=== PATIENT | male | born 1945 | race African-American/Black ===

== ENCOUNTER 2017-08-25 12:25 | Inpatient (IN) | payer OTHER, BC ==
[~2017-08-25] VITALS: Ht 180.3 cm; Wt 77.3 kg
--- NOTE | ~2017-08-25 | PLAN ---
[facility] [place] [address] REHAB UNIT PLAN OF CARE Name: NOVA REYNA Room #: 514-P ADM IN M.R.#: [id number] Admission: 08/26/17 Attend Phys: Nikko Grijalva MD Discharge: Date of : 45 Report #: [id number] THIS REPORT FOR: //name// CC: Nikko Kim DATE OF SERVICE: 08/28/2017 INTERNAL HISTORY: The patient is seen back today in followup. No specific complaints, temperature 98.2, pulse 60, respirations 16, blood pressure 140/79. He is alert. He does have some cogwheeling of his upper extremities, elbows and wrists. Wound care has been involved with his abdominal wound, which had dehiscence of the abdominal surgical wound and they did perform a sharp excisional debridement yesterday. The patient functionally is transferring with min assist with gait, mod assist 250 feet without a device. In occupational therapy, he is min assist for upper body dressing and max assist for lower body dressing. In speech therapy, he does have wszw-[id number] dysphagia with recommendations for mechanical soft, honey-thickened liquid diet. ASSESSMENT: 1. Parkinson's disease. 2. Small-bowel obstruction, status post exploratory laparotomy with ileostomy placement. 3. Midline surgical abdominal wound with dehiscence, now status post sharp debridement and packing. 4. Chronic orthostatic hypotension. 5. History of acute renal failure. 6. History of elevated lipids. PLAN: The overall plan of care is based on the preadmission screen, post-admission physician evaluation and information garnered from therapy assessments. 1. Estimated length of stay is probably at least 2 weeks pending progress. 2. Medical prognosis is reasonably good. 3. Anticipated interventions includes the interdisciplinary acute inpatient rehabilitation program with the multiple leadership development consultant physicians that are involved. 4. Anticipated functional outcomes would be for the patient to become modified independent with transfers, mobility and ADLs, improvement in swallowing and further progress as far as his wound as well as training with the patient and , so that he can return back to the home setting. 5. Discharge destination would be back home with his . 6. Expected therapy by discipline includes PT, OT and speech 1 hour per day each, five days a week throughout the duration of the acute inpatient [address] [address] REHAB UNIT PLAN OF CARE Name: NOVA REYNA Room #: 514-P [facility] IN [facility]#: [id number] Admission: 08/26/17 Attend Phys: Nikko Grijalva MD Discharge: Date of : 45 Report #: [id number] rehabilitation stay. In addition to the progress note above is the dysphagia for which he is currently on the thickened liquids. <ELECTRONICALLY SIGNED> By: Nikko Grijalva MD 09/01/17 1116 1022 0015 Nikko Grijalva MD /PMT
--- NOTE | ~2017-08-25 | HC ---
[facility] [place] [address] CONSULTATION Name: NOVA REYNA Room #: 514-P [facility] IN .R.#: [id number] Admission: 08/26/17 Attend Phys: Nikko Grijalva MD Discharge: Date of : 45 Report #: [id number] THIS REPORT FOR: //name// CC: Nikko Kim DATE OF SERVICE: 08/27/2017 REASON FOR CONSULTATION: Nonhealing midline surgical incision wound with wound dehiscence. HISTORY OF PRESENT ILLNESS: The patient is a 72-year-old patient of [facility] [place]. He was a surgical patient at [facility] where he underwent exploratory laparotomy recently for a small-bowel obstruction. A diverting ileostomy was required. Details of that surgery including the segment resected and where there are internal anastomosis is not immediately available. The patient was transferred to the rehabilitation unit due to his Parkinson's disease and poor wound care after his midline abdominal incision wound was noted to have suffered dehiscence. PAST MEDICAL HISTORY: Parkinson's disease, history of chronic orthostatic hypotension, history of acute renal failure, hyperlipidemia. MEDICATIONS: See the MAR. ALLERGIES: No known drug allergies. FAMILY HISTORY: Noncontributory. SOCIAL HISTORY: The patient has a and a child. He lives with his . REVIEW OF SYSTEMS: Noncontributory. PHYSICAL EXAMINATION: GENERAL: Shows chronically ill-appearing elderly -Algerian male who is alert, pleasant and conversant. HEENT: Mucous membranes are moist. NECK: Supple. LUNGS: Respirations are unlabored. EXTREMITIES: Normal. ABDOMEN: Examination of the abdomen shows a well-pouched ileostomy in the right lower quadrant of the abdomen. In the lower midline of the abdomen, there is a recent surgical incision present with three surgical alcira remaining at the bottom of the wound, which are removed. Lower portion of the wound has suffered a major dehiscence. Wound measures approximately 11 cm long x 5.5 cm wide x 3.5 cm deep. There is granulation tissue present in the wound with a significant [address] [address] CONSULTATION Name: NOVA REYNA Room #: 514-P ADM IN M.R.#: [id number] Admission: 08/26/17 Attend Phys: Nikko Grijalva MD Discharge: Date of : 45 Report #: [id number] amount of necrotic subcutaneous tissue what appears to be some necrotic muscle and fascia. Running suture line has dehisced and monofilament suture with a running stitch is present in the base of the wound, which is not offering any structural integrity to the wound. It is indeterminate whether the fascia is intact; however, I suspect the fascia is not intact; however, the base of the wound appears to be lined with granulation tissue and there is no obvious bowel, although there is densely adherent exudate at the base of the wound. Wound requires debridement of the frankly necrotic tissue which is malodorous to get down to healthy granulation tissue and the old suture need to be removed as it is not providing any structural integrity; however, we will not debride the base of the wound since this could be bowel, which is granulated in versus omentum. It is not clear if the fascia is intact. No surrounding cellulitis. IMPRESSION: 1. History of small bowel obstruction. 2. History acute renal failure. 3. History of chronic orthostatic hypotension. 4. History of recent small bowel obstruction with creation of diverting ileostomy. 5. Dehiscence of midline abdominal surgical incision wound with necrotic tissue in the wound requiring debridement. We will debride the wound and necrotic tissue and remove the old running suture, which is not providing any structural integrity. PLAN: We did clean up the wound with quarter strength Dakin's packing twice daily. Once wound is last cleaner, then we can do negative pressure wound therapy with a wound VAC with a protective layer at the base of the wound, in case the base of the wound is bowel which is granulating into ____. No evidence of sepsis. We will check the patient's albumin to help assess his nutritional status. Wound care team will follow. <ELECTRONICALLY SIGNED> By: Sid Pisano MD 08/29/17 0852 1505 02 Sid Pisano MD /nt
--- NOTE | ~2017-08-25 | P ---
[facility] [place] [place] [address] PROCEDURE REPORT Name: NOVA REYNA Room #: 514-P ADM IN M.R.#: [id number] Admission: 08/26/17 Attend Phys: Nikko Grijalva MD Discharge: Date of : 45 Report #: [id number] THIS REPORT FOR: //name// CC: Nikko Kim DATE OF SERVICE: 08/27/2017 PREOPERATIVE DIAGNOSES: Dehiscence of midline abdominal incision wound with necrotic subcutaneous tissue, necrotic muscle, necrotic fascia and old suture material not providing structural integrity to the wound. POSTOPERATIVE DIAGNOSES: Dehiscence of midline abdominal incision wound with necrotic subcutaneous tissue, necrotic muscle, necrotic fascia and old suture material not providing structural integrity to the wound with wound measuring 11 cm long x 5.2 cm deep x 3.3 cm wide. PROCEDURE: Sharp excisional debridement of subcutaneous tissue, muscle, fascia and old suture material and wound measuring 11 cm x 5.2 cm x 3.3 cm. POULTRY EVISCERATOR: Sid Pisano M.D. ANESTHESIA: Topical lidocaine 2%. INDICATIONS: The patient is a 72-year-old gentleman transferred from [facility] where he had undergone exploratory laparotomy and creation of stoma. He experienced dehiscence of his midline surgical incision wound with a large open wound. Bedside examination of the wound showed some granulation tissue with a significant burden of necrotic subcutaneous tissue, subcutaneous necrotic muscle and necrotic fascia with old suture material. Informed consent was obtained for excisional debridement of subcutaneous tissue, muscle, fascia and old suture material. DESCRIPTION OF PROCEDURE: With topical 2% lidocaine anesthesia, a forceps, scissors and curette were used to sharply debride the wound and necrotic subcutaneous tissue, necrotic muscle, necrotic fascia down to healthy bleeding tissue. Old suture material which was a double running suture not providing structural integrity to the wound anymore was removed. The base of the wound had granulation tissue with dense adherent exudate. No debridement was done at the base of the wound since this could be granulated bowel. Entirety of the wound edges; however, were debrided and all frankly necrotic subcutaneous tissue, muscle and fascia were removed. Wound was much clean at the end of the [facility] [address] [place] [address] PROCEDURE REPORT Name: NOVA REYNA Room #: 514-P ADM IN M.R.#: [id number] Admission: 08/26/17 Attend Phys: Nikko Grijalva MD Discharge: Date of : 45 Report #: [id number] procedure and packed with quarter strength Dakin's gauze to try and prepare the wound for negative pressure wound therapy, wound VAC. <ELECTRONICALLY SIGNED> By: Sid Pisano MD 08/29/17 0852 1101 1152 Sid Pisano MD /nt
--- NOTE | ~2017-08-25 | H ---
[facility] [place] [address] HISTORY AND PHYSICAL Name: NOVA REYNA Room #: 514-P ADM IN M.R.#: [id number] Admission: 08/26/17 Attend Phys: Nikko Grijalva MD Discharge: Date of : 45 Report #: [id number] THIS REPORT FOR: //name// CC: Nikko Kim DATE OF SERVICE: 08/26/2017 HISTORY AND PHYSICIAL/POST-ADMISSION PHYSICIAN EVALUATION HISTORY OF PRESENT ILLNESS: The patient is a 72-year-old male with a history of Parkinson's disease and chronic hypotension, who was admitted for acute in-hospital inpatient rehabilitation. He was recently taken to [facility], was diagnosed with a small-bowel obstruction and required exploratory laparotomy with ileostomy. He is noted to have an open abdominal wound. He does have functional mobility and ADL deficits with his Parkinson's disease and has been admitted for an acute in-hospital inpatient rehabilitation stay. PAST MEDICAL HISTORY: Includes the Parkinson's disease. He does have a history of chronic orthostatic hypotension, history of acute renal failure, history of elevated lipids. MEDICATIONS: Please see the full medication listing. Each of these was individually reconciled and includes vitamins, herbals and supplements. ALLERGIES: No known drug allergies. FAMILY HISTORY: Noncontributory. SOCIAL HISTORY: Lives in a house with his . There is a threshold to get in. He did not utilize gait aids premorbidly. His works part-time. REVIEW OF SYSTEMS: Did not offer any current complaints of chest pain, shortness of breath or abdominal discomfort. Notes that he can have some problems with functional mobility and describes some destination/retropulsion. PHYSICAL EXAMINATION: GENERAL: The patient is a pleasant 72-year-old -Sri [place]ank[place] male in no obvious distress. VITAL SIGNS: Last recorded temperature is 98.5, pulse 62, respirations 20, blood pressure 125/68. HEENT: Facies are symmetric. There is some evidence of masked facies CHEST: Sounded clear to auscultation. CARDIOVASCULAR: Regular rate and rhythm. ABDOMEN: He has the ileostomy. He has a midline incision which has an area of significant breakdown with packing in place. Wound Care will need to follow [address] [address] HISTORY AND PHYSICAL Name: NOVA REYNA Room #: 514-P [facility] IN ..#: [id number] Admission: 08/26/17 Attend Phys: Nikko Grijalva MD Discharge: Date of : 45 Report #: [id number] regarding this. His bowel sounds are positive and he is nontender. He has functional range of motion of both upper and lower extremities. Some cogwheeling is noted at the elbows and wrist. There is some bradykinesia. His strength is a grade 4-/5 upper and lower extremities. DTRs are 1. He is needing assistance with basic functional mobility skills. ASSESSMENT: A 72-year-old -S[place]ankan male with the following problem list: 1. Parkinson's disease. 2. Small-bowel obstruction, status post exploratory laparotomy with ileostomy placement. Midline wound is being packed. 3. Chronic orthostatic hypotension. 4. History of acute renal failure. 5. History of elevated lipids. 6. Functional mobility and ADL deficits as well as speech communication deficits. PLAN: The patient will be involved in the inpatient rehabilitation program. From a post-admission physician evaluation perspective, there are no relevant changes since the preadmission screening. Please see the above review of prior and current medical and functional conditions and comorbidities. Please see the patient's previous and current functional status. As far as risk of complications, the patient does have the above noted comorbidities. The initial plan of care involves the interdisciplinary acute inpatient rehabilitation program with the goal of maximizing the patient's functional independence, so that he can hopefully return back to his prior living situation. He previously did not need any gait aids with functional mobility and currently needs assistance and has some retropulsion and decreased balance that are noted. His measurable functional goals would be for him to become modified independent with transfers, mobility and ADLs that he can hopefully return back to his prior living situation. Goals to further assess with any cognitive issues as well. Prognosis is reasonably good with estimated length of stay probably at least 7-10 days, pending progress. Potential barriers would include his multiple medical comorbidities and decreased functional status. The patient meets diagnostic criteria for an acute in-hospital inpatient rehabilitation stay. He meets medical necessity criteria and we will have Internal Medicine involved as well as Wound Care with his abdominal wound. He does have the tolerance for an acute inpatient rehabilitation stay and has appropriate discharge goals back to the home setting. <ELECTRONICALLY SIGNED> By: Nikko Grijalva MD 09/01/17 1116 0843 1324 Nikko Grijalva MD /[facility]
--- NOTE | ~2017-08-25 | HC ---
[facility] [place] [address] CONSULTATION Name: NOVA REYNA Room #: 514-P [facility] IN M.R.#: [id number] Admission: 08/26/17 Attend Phys: Nikko Grijalva MD Discharge: Date of : 45 Report #: [id number] THIS REPORT FOR: //name// CC: Nikko Kim DATE OF SERVICE: 08/29/2017 NEUROPSYCHOLOGICAL CONSULTATION DATE OF SERVICE: 08/29/2017 ATTENDING PHYSICIAN: Nikko Grijalva MD FILM WAXER: Magdaleno Bass, PhD CLINICAL PRESENTATION: The patient is a 72-year-old male admitted to the [facility] rehabilitation unit for comprehensive inpatient rehabilitation program to improve functional mobility, activities of daily living and self-care and mental status secondary to deficits from Parkinson disease and recovery from a small bowel obstruction. He is status post exploratory laparotomy with ileostomy placement. His diagnoses include chronic orthostatic hypotension, history of acute renal failure, elevated lipids and functional mobility and ADL deficits. A complete description of his medical condition and history along with medications can be found in his medical record. Neuropsychological consultation was requested to provide assistance in the assessment of cognitive and emotional status and to provide recommendations and services. Prior to this most recent admission, he was living independently with his in their home. The patient has 2 stepchildren and 1 biological child. He retired from employment with the [employer]. 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 He does not report a history of treatment for anxiety or depression. There is also no report of alcohol or drug abuse. TECHNIQUES UTILIZED: Clinical interview, review of medical records, staff consultation and behavioral observation, mini mental status exam 2 standard version, calibrated ideational fluency assessment (letter and category fluency and clock drawing). EXAMINATION FINDINGS: The patient was alert and cooperative with the assessment. There is no evidence of aphasia. His thoughts were logical and goal oriented. There is no evidence of thought disorder. There is no report of auditory or visual hallucinations. His speech is very soft and with decreased volume. He reports his symptoms to be intermittent difficulty with [facility] [address] [place] [address] CONSULTATION Name: NOVA REYNA Room #: 514-P [facility] IN M.R.#: [id number] Admission: 08/26/17 Attend Phys: Nikko Grijalva MD Discharge: Date of : 45 Report #: [id number] memory and attention and concentration. He does not report subjective anxiety, depression or difficulty with word finding. Frequent encouragement is needed to increase the volume of expressive speech and speed of processing is slow. His performance on the MMSE 2 brief version is in the moderate range of impairment with a raw score 12 of 16 and a T score of 26, which is at the 1st percentile. He is 3/3 for initial registration, 4/5 for orientation to time and4/[address] He is 1/3 correct for immediate recall of 3 items after a brief time delay and distraction. Performance on the MMSE 2 standard version is in the severe range of deficit with a raw score 21 and a T score of 22, which is moderate to severely impaired. He is 1/5 for serial sevens, 2/2 for naming, 1/1 for repetition, 3/3 for auditory comprehension, 1/1 for reading and 1/1 for being able to write a sentence. He could not copy a simple geometric design. Performance in verbal fluency reveals severe impairment with letter fluency and moderate to severe impairment with category fluency. Letter fluency was a T score of 19 and category a T score of 22. Overall, total verbal fluency was a T score of 19, which is severely impaired. The patient was unable to draw a clock and set the hands at a designated time. Executive dysfunction is suggested by his performance and clock drawing. This type of presentation indicates a patient that is well oriented, but presenting with deficits in immediate memory, sustained attention and concentration, verbal fluency, executive functioning and visual spatial organization and construction. Deficits are in the moderate to severe range. DIAGNOSTIC IMPRESSION: Major neurocognitive disorder (dementia), possibly due to Parkinson disease, without behavior disorder -- extent to be determined, moderate to severe at this time. RECOMMENDATIONS: The patient will benefit from a treatment program to address neurocognitive deficits. He will need assistance in the management of his medication as well as nutrition. Educational information for the patient and family to assist in the implementation of compensatory strategies upon his discharge home. A followup neuropsychological evaluation may be of benefit to clarify the severity of cognitive deficits upon the stabilization of his medical condition. However, at this time, supervision and structure will be necessary to maintain safety. Compensatory strategies should address deficits in memory, visual spatial organization and higher level planning and problem solving. [address] [address] CONSULTATION Name: NOVA REYNA Room #: 514-P [facility] IN M.R.#: [id number] Admission: 08/26/17 Attend Phys: Nikko Grijalva MD Discharge: Date of : 45 Report #: [id number] Thank you very much for allowing me to provide the consultation on this patient. <ELECTRONICALLY SIGNED> By: Magdaleno Bass, PhD 09/04/17 1506 [id number] [id number] Magdaleno Bass, PhD /nt
[2017-08-26 16:45] VITALS: BP 143/72
[2017-08-26 20:31] VITALS: BP 125/68
[2017-08-27 04:08] LABS: HEMATOCRIT 27.7 % (42.0-52.0); HEMOGLOBIN 9.4 gm/dL (14.0-18.0); MCH 29.5 pg (26.0-34.0); MCHC 34.1 g/dL (28.0-37.0); MCV 86.4 fL (80.0-100.0); RBC 3.21 mil/uL (4.50-6.00); RDW 13.6 % (10.5-14.5); WBC 6.1 thou/uL (4.0-11.0)
[2017-08-27 04:16] LABS: CALCIUM 8.5 mg/dL (8.5-10.1); CREATININE 1.4 mg/dL (0.7-1.3); POTASSIUM 3.8 mmol/L (3.5-5.1)
[2017-08-27 16:40] LABS: ALBUMIN 1.9 g/dL (3.4-5.0); CALCIUM 8.2 mg/dL (8.5-10.1); CREATININE 1.4 mg/dL (0.7-1.3); TOTAL BILIRUBIN 0.3 mg/dL (<0.1-1.0); TOTAL PROTEIN 6.4 g/dL (6.4-8.2)
[2017-08-27 21:43] VITALS: BP 154/77
[2017-08-28 07:43] VITALS: BP 140/79
[2017-08-28 20:51] VITALS: BP 138/71
[2017-08-29 08:00] VITALS: BP 149/75
[2017-08-29 20:14] VITALS: BP 136/71
[2017-08-30 08:00] VITALS: BP 89/54
[2017-08-30 20:33] VITALS: BP 123/63
[2017-08-31 08:40] VITALS: BP 114/60
[2017-08-31 19:48] VITALS: BP 108/63
[2017-09-01 06:31] LABS: ABSOLUTE NEUTROPHILS 4.7 thou/uL (1.4-8.2); BASOPHILS 0.7 % (0.0-2.0); EOSINOPHILS 3.9 % (0.0-3.0); HEMATOCRIT 30.5 % (42.0-52.0); HEMOGLOBIN 10.1 gm/dL (14.0-18.0); LYMPHOCYTES 12.8 % (24.0-44.0); MCH 28.9 pg (26.0-34.0); MCHC 32.9 g/dL (28.0-37.0); MCV 87.8 fL (80.0-100.0); MONOCYTES 8.3 % (1.0-8.0); PLATELET COUNT 523 thou/uL (150-400); POLYS 74.3 % (36.0-66.0); RBC 3.48 mil/uL (4.50-6.00); RDW 14.1 % (10.5-14.5); WBC 6.3 thou/uL (4.0-11.0)
[2017-09-01 06:39] LABS: MANUAL DIFF NO
[2017-09-01 06:49] LABS: CALCIUM 8.5 mg/dL (8.5-10.1); CREATININE 1.2 mg/dL (0.7-1.3); MAGNESIUM 1.8 mg/dL (1.8-2.4); POTASSIUM 4.2 mmol/L (3.5-5.1)
[2017-09-01 08:15] VITALS: BP 131/58
[2017-09-01 16:49] VITALS: BP 131/58
[2017-09-01 20:50] VITALS: BP 126/70
[2017-09-02 07:40] VITALS: BP 136/75
[2017-09-02 19:55] VITALS: BP 128/71
[2017-09-03 08:15] VITALS: BP 125/68
[2017-09-03 20:18] VITALS: BP 149/72
[2017-09-04 09:05] VITALS: BP 115/64
[2017-09-04 19:56] VITALS: BP 106/53
[2017-09-05 05:27] LABS: ABSOLUTE NEUTROPHILS 3.9 thou/uL (1.4-8.2); EOSINOPHILS 5.8 % (0.0-3.0); HEMATOCRIT 30.5 % (42.0-52.0); MCH 28.8 pg (26.0-34.0); MCV 87.3 fL (80.0-100.0); MONOCYTES 9.7 % (1.0-8.0); PLATELET COUNT 405 thou/uL (150-400); POLYS 68.5 % (36.0-66.0); RBC 3.49 mil/uL (4.50-6.00); RDW 14.3 % (10.5-14.5); WBC 5.6 thou/uL (4.0-11.0)
[2017-09-05 05:28] LABS: MANUAL DIFF NO
[2017-09-05 05:38] LABS: CALCIUM 8.7 mg/dL (8.5-10.1); CREATININE 1.3 mg/dL (0.7-1.3); MAGNESIUM 1.8 mg/dL (1.8-2.4)
[2017-09-05 07:30] VITALS: BP 155/67
[2017-09-05 20:05] VITALS: BP 92/54
[2017-09-06 08:00] VITALS: BP 127/70
[2017-09-06 19:53] VITALS: BP 106/53
[2017-09-07 06:04] LABS: HEMATOCRIT 31.3 % (42.0-52.0); HEMOGLOBIN 10.7 gm/dL (14.0-18.0); MCH 29.8 pg (26.0-34.0); MCHC 34.2 g/dL (28.0-37.0); MCV 87.1 fL (80.0-100.0); PLATELET COUNT 346 thou/uL (150-400); RBC 3.59 mil/uL (4.50-6.00); RDW 14.5 % (10.5-14.5); WBC 4.6 thou/uL (4.0-11.0)
[2017-09-07 06:12] LABS: MANUAL DIFF YES
[2017-09-07 06:26] LABS: CALCIUM 8.5 mg/dL (8.5-10.1); CREATININE 1.2 mg/dL (0.7-1.3); MAGNESIUM 1.8 mg/dL (1.8-2.4)
[2017-09-07 08:30] VITALS: BP 126/78
[2017-09-07 08:35] LABS: ANISOCYTOSIS SLIGHT; POIKILOCYTOSIS SLIGHT; TOTAL CELL COUNT 100
[2017-09-07 20:29] VITALS: BP 120/69
[2017-09-08 07:50] VITALS: BP 133/65
[2017-09-08] MEDS ORDERED: TYLENOL325 MG PO (09:59)
[2017-09-08] MEDS ORDERED: LIPITOR80 MG PO (09:59)
[2017-09-08] MEDS ORDERED: SINEMET 25-1001 EAC1 PO (09:59)
[2017-09-08] MEDS ORDERED: HOME MEDICATION PO (09:59)
[2017-09-08] MEDS ORDERED: ASPIR 8181 MG PO (09:59)
[2017-09-08] MEDS ORDERED: PROTONIX40 M1 PO (09:59)
[2017-09-08] MEDS ORDERED: FLOMAX0.4 MG PO (09:59)
[2017-09-08] MEDS ORDERED: IRON325 PO (09:59)
[2017-09-08] MEDS ORDERED: LOPERAMIDE 2 MG2 M1 PO (09:59)
[2017-09-08] MEDS ORDERED: VITAMIN D2000 UNIT PO (09:59)
== END 2017-09-08 15:00 | disposition short-term general hospital (02) | DRG 40 ==
PROVIDERS: Nurse Practitioner; Physical Medicine & Rehabilitation; Specialist
PROC: 0KBK0ZZ Excision of Right Abdomen Muscle, Open Approach (ICD-10-PCS; principal; 2017-08-27)
PROC: 0KBL0ZZ Excision of Left Abdomen Muscle, Open Approach (ICD-10-PCS; principal; 2017-08-27)
DX: G20 Parkinson's disease (principal); E43 Unspecified severe protein-calorie malnutrition; T81.30XA Disruption of wound, unspecified, initial encounter; K56.609 Unspecified intestinal obstruction, unspecified as to partial versus complete obstruction; E78.5 Hyperlipidemia, unspecified; I95.1 Orthostatic hypotension; F01.50 Vascular dementia, unspecified severity, without behavioral disturbance, psychotic disturbance, mood disturbance, and anxiety; N28.9 Disorder of kidney and ureter, unspecified; R53.81 Other malaise; R13.10 Dysphagia, unspecified; Z93.2 Ileostomy status; Z68.23 Body mass index [BMI] 23.0-23.9, adult
CPT/HCPCS: 10112